=== PATIENT | female | born 1975 | race Caucasian/White ===

== ENCOUNTER 2019-07-17 05:18 | Inpatient (IN) | payer MEDICAID ==
[~2019-07-17] VITALS: Ht 167.6 cm; Wt 98.9 kg
[2019-07-17 05:18] VITALS: BP_SYST 187
--- NOTE | 2019-07-17 05:18 | NUR ---
Dr. Roy assessing pt.
--- NOTE | 2019-07-17 05:18 | NUR ---
Pt BIB ALS r/t ALOC, placed to ER bed 07 and to electronic device monitor. Pt was found staggering around outside of [facility] acting "funny and loopy" as reported by staff of [facility] to ALS. Pt arrives AAOx2, Altered, pinpoint pupils. Pt admits to Marijuanna, Meth, and alcohol use ASSEMBLY DEPARTMENT SUPERVISOR. Pt laughing and trying to get out of bed. Pt instructed to get back into bed and complies.
[2019-07-17] MEDS ORDERED: LORazepam 2 MG/ML VIAL IM ONE (05:30)
[2019-07-17] MEDS ORDERED: HALOPERIDOL LACTATE 5 MG/ML VIAL IM ONE ×4 (05:30→06:00)
[2019-07-17] MEDS ORDERED: DIPHENHYDRAMINE INJ 50 MG/ML VIAL IM ONE (05:30)
--- NOTE | 2019-07-17 05:30 | NUR ---
Pt attempting to get out of bed, wripping off monitoring equipment, combative, yelling out profanities. Dr. Roy made aware. Pt to be medicated.
--- NOTE | 2019-07-17 05:45 | NUR ---
Pt was laughing, then becomes increasingly hostile, attempting to hit staff, and continues to yell out profanities. Pt difficult to restrain with assistance of 3 RNs, EMT, and security. 4 point restraints applied per verbal order Dr. Roy. Pt continues to thrash about in bed, ripping restraint to RLE. Staff x 4 at bedside continuing to hold down pt.
--- NOTE | 2019-07-17 05:55 | NUR ---
Haldol 5 mg given IM x 3rd dose. Pt becomes less volatile.
--- NOTE | 2019-07-17 05:58 | NUR ---
Pt resting quietly, even and non-labored respirations, on financial management consultant, VSS. 4-point restraints remain in place, pt repositioned.
[2019-07-17 06:35] LABS: BASOPHILS # (AUTO) 0.1 K/uL (0.0-0.2); BASOPHILS % (AUTO) 1.3 % (0.0-2.0); EOSINOPHILS # (AUTO) 0.2 K/uL (0.0-0.4); EOSINOPHILS % (AUTO) 3.6 % (0.0-4.0); HEMATOCRIT 38.4 % (36-48); LYMPHOCYTES # (AUTO) 1.9 K/uL (1.0-5.5); LYMPHOCYTES % (AUTO) 27.4 % (20.5-51.5); MEAN CORPUSCULAR HEMOGLOBIN 31 pg (27-31); MEAN CORPUSCULAR HGB CONC 34 % (32-36); MEAN CORPUSCULAR VOLUME 92 fL (79.0-98.0); MONOCYTES # (AUTO) 0.6 K/uL (0.0-1.0); MONOCYTES % (AUTO) 9.3 % (1.7-9.3); NEUTROPHILS % (AUTO) 58.4 % (40.0-70.0); PLATELET COUNT (AUTO) 300 K/uL (130-430); RED BLOOD CELL COUNT(AUTO) 4.18 MIL/uL (4.2-6.2); RED CELL DISTRIBUTION WIDTH 14.4 % (9.0-15.0); WHITE BLOOD COUNT (AUTO) 6.9 K/uL (4.8-10.8)
--- NOTE | 2019-07-17 06:40 | NUR ---
Pt asleep, withdrawls to heavy touch. Moved to position of comfort, all restraints removed. VSS. Breathing even, unlabored with good tidal volume.
--- NOTE | 2019-07-17 06:43 | NUR ---
Pt to CT via stretcher in stable condition.
[2019-07-17 06:49] LABS: ANION GAP 11 (5-15); CALCIUM 8.3 mg/dL (8.4-11.0); CHLORIDE 105 mmol/L (98-107); CREATININE 0.82 mg/dL (0.55-1.30); GLUCOSE 158 mg/dL (70-99); POTASSIUM 3.2 mmol/L (3.5-5.1); SODIUM SERUM 140 mmol/L (136-145); UREA NITROGEN, BLOOD 16 mg/dL (8-21)
[2019-07-17 06:55] LABS: GFR AFRICAN AMERICAN 98 mL/min (>90)
[2019-07-17 07:00] LABS: ALANINE AMINOTRANSFERASE 37 U/L (12-78); ALBUMIN 3.3 g/dL (3.4-4.8); ASPARTATE AMINOTRANSFERASE 28 U/L (10-37); TOTAL BILIRUBIN 0.2 mg/dL (0.0-1.0)
--- NOTE | 2019-07-17 07:00 | NUR ---
Pt returns from CT. Resting quietly, even and non-labored respirations, VSS per bedside electronic device monitor.
[2019-07-17 07:06] LABS: ACETAMINOPHEN < 1 ug/mL (1-30); ALCOHOL, BLOOD < 3 mg/dL (<10); HCG,QUANTITATIVE 1 mIU/ML (0-6)
[2019-07-17 07:12] LABS: BILIRUBIN,URINE NEGATIVE (NEGATIVE); CLARITY/URINE CLEAR (CLEAR); COLOR,URINE YELLOW (YELLOW); GLUCOSE,URINE NEGATIVE (NEGATIVE); KETONES,URINE NEGATIVE (NEGATIVE); LEUKOCYTE ESTERASE ,URINE NEGATIVE (NEGATIVE); NITRITE, URINE NEGATIVE (NEGATIVE); PROTEIN URINE 1+ (NEGATIVE)
[2019-07-17 07:14] LABS: BLOOD, URINE TRACE (NEGATIVE)
--- NOTE | 2019-07-17 07:46 | NUR ---
pt arrives from [facility] w/ ALOC. Pt then became combative towards staff and is currently on restraints. Pt is sleeping quietly in bed. Report received from Ashu WILLINGHAM
[2019-07-17 07:55] LABS: BARBITURATE, URINE NEGATIVE (NEG <=200); BENZODIAZEPINE, URINE NEGATIVE (NEG <=150); CANNABINOID, URINE POSITIVE (NEG <=50); COCAINE, URINE NEGATIVE (NEG <=150); METHAMPHETAMINES SCREEN,URINE NEGATIVE (NEG <=500); OPIATE, URINE NEGATIVE (NEG <=100); PHENCYCLIDINE SCREEN,URINE POSITIVE (NEG <=25); UR TRICYCLIC ANTIDEPRESSANTS NEGATIVE (NEG <=300); URINE AMPHETAMINE POSITIVE (NEG <=500); URINE METHADONE NEGATIVE (NEG <=200); URINE OXYCODONE SCREEN NEGATIVE (NEG <=100); URINE PROPOXYPHENE SCREEN NEGATIVE (NEG <=300)
[2019-07-17 08:01] LABS: BACTERIA,URINE RARE /HPF (None Seen); RBC,URINE 0-3 /HPF (0-3); WBC,URINE 0-3 /HPF (0-3)
[2019-07-17 08:02] LABS: MUCUS,URINE 1+ /LPF (None Seen)
[2019-07-17 08:04] LABS: PROTHROMBIN TIME 10.3 SECS (9.5-12.5)
--- NOTE | 2019-07-17 08:34 | NUR ---
Patient resting quietly. No acute distress noted. Breathing even, unlabored.
--- NOTE | 2019-07-17 10:06 | NUR ---
JUDI, SKI PATROL OFFICER, CALLED BACK TO GIVE VERBAL AUTH TO ADMIT INHOUSE. REQUESTED FAX OF [facility]. FAX: [phone]
--- NOTE | 2019-07-17 13:20 | NUR ---
Pt resting at this time, VSS, respirations even and unlabored
--- NOTE | 2019-07-17 16:00 | NUR ---
Aylin maravilla'nickolas. Patient is currently sleeping in bed.
--- NOTE | 2019-07-17 17:00 | NUR ---
Pt resting at this time, no s/s of distress, VSS
--- NOTE | 2019-07-17 18:30 | NUR ---
Pt resting at this time, no s/s of distress, VSS,
--- NOTE | 2019-07-17 19:10 | NUR ---
Report given to Van WILLINGHAM
--- NOTE | 2019-07-17 20:20 | NUR ---
Transfer to Telemetry via ACLS protocol. Licensed nurse present. IV present no signs or symptoms of infiltration.
--- NOTE | 2019-07-17 20:20 | NUR ---
Patient will be admitted to care of Dr. Iqbal. Admitted to Telemetry unit. Will go to room 112 A. Belongings list completed. Complete and up to date summary report printed. SBAR report to be given at bedside with opportunity for questions.
--- NOTE | 2019-07-17 20:30 | NUR ---
ADMISSION: The patient, YENIFER JERONIMO, 43 y/o, F admitted by ANURADHA HANSEN MD, WITH THE DIAGNOSIS OF ALTERED LEVEL OF CONSCIOUSNESS, PT WAS ON RESTRAINT , PER ER NURSE , PT WAS ON RESTRAINT JUST FOR TRANSFER , SO RESTRAINTS DCD . PT IS SLEEPING AT THIS TIME . VITALS ARE STABLE, PRIMARY RN AWARE .
--- NOTE | 2019-07-17 21:10 | NUR ---
SBAR report Received beside sbar report from charge, Екатерина WILLINGHAM. Patient resting in bed w/ eyes closed. Bed locked in lowest position, side rails up 3x, bed alarm on, call light w/in reach.
--- NOTE | 2019-07-17 21:18 | NUR ---
Dr. Iqbal s/w Dr. Iqbal, received orders for IVF LR at 100 ml/hr, bilat wrist restraint, K-rider 40 meq for potassium level 3.2, Psych consult w/ Dr. Garcia. Read back and entered in [facility].
[2019-07-17] MEDS ORDERED: POTASSIUM CHLORIDE 40 MEQ in NS 250 ML IV SCH (22:00)
[2019-07-17 22:14] VITALS: BP_SYST 114
[2019-07-17] MEDS: LR 1,000 ML IV SCH (22:33)
[2019-07-17] MEDS ORDERED: LORazepam 2 MG/ML VIAL IVP PRN (22:45)
--- NOTE | 2019-07-17 23:25 | NUR ---
Consultation Paged Reason for Consultation: Acting Out/ Agitated Was consult called? Y Person who was notified: Jacqueline Consulting Physician: Dr. Garcia Supervisor [employer] Ordering Physician: Dr. Iqbal Face Sheet was fax to [phone]
[2019-07-17] MEDS ORDERED: KCL 20 mEq in 100 mL (PREMIX) 100 ML IV ONE (23:34)
--- NOTE | 2019-07-18 00:15 | NUR ---
Awake / yelling Patient is awake and started yelling. She was cussing and demanding I get her out of here. I reoriented her to surroundings and informed she is in hospital and she did not follow. She became upset and continued to cuss, she started sitting up, pull off gown, and triggered the alarm. I administered ativan for agitation as ordered.
[2019-07-18 01:46] VITALS: BP_SYST 157
[2019-07-18] MEDS ORDERED: KCL 20 mEq in 100 mL (PREMIX) 100 ML IV ONE (02:34)
[2019-07-18 07:19] LABS: BASOPHILS # (AUTO) 0.1 K/uL (0.0-0.2); EOSINOPHILS # (AUTO) 0.3 K/uL (0.0-0.4); EOSINOPHILS % (AUTO) 3.7 % (0.0-4.0); HEMATOCRIT 37.8 % (36-48); HEMOGLOBIN 12.8 g/dL (12.0-16.0); LYMPHOCYTES # (AUTO) 2.2 K/uL (1.0-5.5); LYMPHOCYTES % (AUTO) 32.5 % (20.5-51.5); MEAN CORPUSCULAR HEMOGLOBIN 31 pg (27-31); MEAN CORPUSCULAR HGB CONC 34 % (32-36); MEAN CORPUSCULAR VOLUME 93 fL (79.0-98.0); MONOCYTES # (AUTO) 0.5 K/uL (0.0-1.0); NEUTROPHILS # (AUTO) 3.8 K/uL (1.8-7.7); NEUTROPHILS % (AUTO) 55.8 % (40.0-70.0); PLATELET COUNT (AUTO) 277 K/uL (130-430); RED BLOOD CELL COUNT(AUTO) 4.08 MIL/uL (4.2-6.2); RED CELL DISTRIBUTION WIDTH 14.5 % (9.0-15.0); WHITE BLOOD COUNT (AUTO) 6.8 K/uL (4.8-10.8)
--- NOTE | 2019-07-18 07:19 | NUR ---
Nutrition Update Saleem Scale 17 noted. Pt admitted for ALOC Diet: Regular BMI: 25.9 kg/m2 RD to follow per nutrition care standards.
--- NOTE | 2019-07-18 07:25 | NUR ---
closing note endorsed care, sbar report, patient stable
[2019-07-18 07:43] LABS: POTASSIUM 3.9 mmol/L (3.5-5.1)
[2019-07-18 07:44] LABS: ALBUMIN 2.8 g/dL (3.4-4.8); CALCIUM 8.4 mg/dL (8.4-11.0); CREATININE 0.55 mg/dL (0.55-1.30)
[2019-07-18 08:00] VITALS: BP_SYST 143
--- NOTE | 2019-07-18 08:00 | NUR ---
Note Pt drowsy and sleepy at this time with bilateral wrist restraints on at this time. Tele unit attached and intact. IV in right hand intact and patent infusing IVF's well. Pt next to nurses' station for close observation for needs and care. Pt has O2 on at 2L/nc. Pt confused and agitated when awake. Call light within reach.
[2019-07-18 08:13] LABS: TOTAL BILIRUBIN 0.4 mg/dL (0.0-1.0)
[2019-07-18] MEDS ORDERED: LORazepam 2 MG/ML VIAL IM ONE (08:45)
--- NOTE | 2019-07-18 08:45 | NUR ---
Note Pt got out of bed, pulled off her wrist restraints, tele unit, ID name band and IV. Bed alarm was on all shift. Pt sat in BS chair, was reluctant to go back to bed. 4 person assist pt back to bed. Pt's wrist restraints were reapplied, Ativan 2mg, tele unit was reattached and new IV was restarted on right hand. Dr Iqbal was called to notify MD. Pt fell back to sleep at this time. Call light within reach.
[2019-07-18] MEDS: LR 1,000 ML IV SCH ×2 (09:39→17:04)
--- NOTE | 2019-07-18 11:35 | NUR ---
Note Pt asleep in bed with restraints on bilateral wrist. Bed alarm on all shift. Pt next to nurses' station for close observation at this time. Tele unit attached and intact at this time.
[2019-07-18 13:03] VITALS: BP_SYST 155
[2019-07-18] MEDS ORDERED: LORazepam 2 MG/ML VIAL IVP PRN (15:15)
[2019-07-18 16:11] VITALS: BP_SYST 125
--- NOTE | 2019-07-18 18:00 | NUR ---
Note Pt was checked on Q1' and PRN all shift for needs and care. Tele unit attached and intact all shift. IV in right hand intact and patent infusing IVF's well. Dr Shane came to pt's bedside and assessment was completed at this time. No needs noted. Dr Iqbal did rounds as well. Pt resting in bed. Call light within reach.
--- NOTE | 2019-07-18 18:50 | NUR ---
Note Dr Iqbal doing rounds at bedside, pt pulled out her IV and right restraint. Dr Iqbal will write orders for sedation and to help pt with agitation and restlessness. Pt refused her dinner tray which is at bedside.
[2019-07-18] MEDS ORDERED: DIPHENHYDRAMINE INJ 50 MG/ML VIAL IM PRN (19:00)
[2019-07-18] MEDS ORDERED: HALOPERIDOL LACTATE 5 MG/ML VIAL IM PRN (19:00)
--- NOTE | 2019-07-18 19:20 | NUR ---
initial notes: pt is very lethargic, wakes up and talk when ask by family member. pt is oriented x 3. no sign of pain. no distress. no iv site at this time. pt has bilateral wrist restrain for pulling out lines. family at bedside. vital sign are stable. explain to family member plan of care and why pt is on restrain. they verbalized understanding. needs attended, call light in reach,side rails up and low bed position and lock. will monitor.
[2019-07-18 20:28] VITALS: BP_SYST 162
[2019-07-18] MEDS: OLANZapine 5 MG TAB.RAPDIS PO SCH (20:51)
--- NOTE | 2019-07-18 22:00 | NUR ---
family member clean and feed the pt. tolerate well. stable. needs attended. safety on, family member at bedside. will monitor.
[2019-07-18 23:45] VITALS: BP_SYST 150
--- NOTE | 2019-07-19 | NUR ---
pt is resting, quietly. start new iv to left fore arm gauge 20- good blood return, done aseptically. pt tolerate well. iv site secure well. needs attended. family at bedside will follow-up.
--- NOTE | 2019-07-19 02:00 | NUR ---
ask to go to bathroom, assisted pt, unsteady gait, tolerate well. no sign of agitation. still sleepy, back to bed.safety on. family at bedside. will monitor.
[2019-07-19] MEDS: LR 1,000 ML IV SCH ×3 (03:30→20:57)
--- NOTE | 2019-07-19 04:00 | NUR ---
pt is sleeping, no agitation and no pulling out of lines, family member at bedside. needs attended. safety on. will monitor.
--- NOTE | 2019-07-19 05:52 | NUR ---
sleeping, no pain. no sob. no agitation. ivf infusing well. family member at bedside. will monitor.
--- NOTE | 2019-07-19 07:25 | NUR ---
closing: pt is sleeping, no sob, no pain, no agitation. ivf infusing well. family member at bedside. bedside report given to am rn.
[2019-07-19 08:50] VITALS: BP_SYST 151
[2019-07-19] MEDS: OLANZapine 5 MG TAB.RAPDIS PO SCH ×2 (08:51→20:57)
[2019-07-19 11:36] VITALS: BP_SYST 148
--- NOTE | 2019-07-19 12:20 | NUR ---
Routine Patient resting comfortably in bed with family members at bedside. Patient stable at this time.
[2019-07-19 14:17] LABS: BASOPHILS # (AUTO) 0.1 K/uL (0.0-0.2); BASOPHILS % (AUTO) 1.3 % (0.0-2.0); EOSINOPHILS # (AUTO) 0.3 K/uL (0.0-0.4); HEMATOCRIT 36.3 % (36-48); HEMOGLOBIN 12.5 g/dL (12.0-16.0); LYMPHOCYTES # (AUTO) 2.1 K/uL (1.0-5.5); LYMPHOCYTES % (AUTO) 34.9 % (20.5-51.5); MEAN CORPUSCULAR HEMOGLOBIN 31 pg (27-31); MEAN CORPUSCULAR HGB CONC 34 % (32-36); MEAN CORPUSCULAR VOLUME 91 fL (79.0-98.0); MONOCYTES # (AUTO) 0.5 K/uL (0.0-1.0); MONOCYTES % (AUTO) 8.1 % (1.7-9.3); NEUTROPHILS # (AUTO) 3.1 K/uL (1.8-7.7); NEUTROPHILS % (AUTO) 50.7 % (40.0-70.0); PLATELET COUNT (AUTO) 298 K/uL (130-430); RED BLOOD CELL COUNT(AUTO) 3.97 MIL/uL (4.2-6.2); RED CELL DISTRIBUTION WIDTH 14.3 % (9.0-15.0); WHITE BLOOD COUNT (AUTO) 6.1 K/uL (4.8-10.8)
[2019-07-19 14:38] LABS: CALCIUM 8.1 mg/dL (8.4-11.0); CREATININE 0.7 mg/dL (0.55-1.30); POTASSIUM 3.7 mmol/L (3.5-5.1)
--- NOTE | 2019-07-19 15:27 | NUR ---
Jordan Man Note SHAMPOO ASSISTANT attempted to speak with patient. Patient is very lethargic and unable to converse coherently. Spoke with patient's mother, Fay Henning [phone], at bedside. Patient's father, Itz Henning [phone], was also present. Fay stated that patient has been living in other places but will go home with them for at least some time after hospitalization. Patient struggles with substance abuse and has no PCP. Patient's baby is in the custody of patient's parents. Provided Fay with information and advice on substance abuse resources, [facility], and outpatient mental health resources. Psychiatry has attempted an evaluation and will try again when patient may be more alert. Jordan Man will remain available and will attempt to speak with patient when she is more alert. Addendum: 07/19/19 at 1540 by Catherine Hodge LCSW Patient's daughter is nine years old.
[2019-07-19 15:41] VITALS: BP_SYST 165
--- NOTE | 2019-07-19 15:54 | NUR ---
Dietitian Recommendations * Recommend 2 gm Na diet LP, RD Please refer to Nutrition Assessment for details. Signed: 07/19/19 at 1555 by Cindy LION <Co-Signature Required> Co-Signed: 07/19/19 at [address] Addendum: 07/19/19 at 1556 by Cindy LION Amended: Links added.
--- NOTE | 2019-07-19 19:30 | NUR ---
OPENING NOTES Patient is resting, no signs of acute respiratory distress. IVF running, dressings c/d/i. Seizure pads in place, call light within reach, bed alarm on, bed at lowest position. Will continue to monitor.
[2019-07-19 20:00] VITALS: BP_SYST 136
--- NOTE | 2019-07-19 20:10 | NUR ---
Patient moved to 112A, family at bedside, patient is still resting, easily arousable. Will continue to monitor.
--- NOTE | 2019-07-19 22:14 | NUR ---
Patient is assisted to the restroom, no signs of distress at this time. Patient is ambulatory and continually reoriented. Family at bedside. Will continue to monitor.
--- NOTE | 2019-07-19 22:15 | NUR ---
Patient provided with sandwich, family at bedside. Patient is resting, no distress observed. IVF running, dressings c/d/i. Will continue to monitor.
--- NOTE | 2019-07-20 00:03 | NUR ---
Patient is resting, no signs of acute respiratory distress observed at this time. Seizure pads in place, family with patient. Will continue to monitor.
[2019-07-20 01:35] VITALS: BP_SYST 133
--- NOTE | 2019-07-20 02:02 | NUR ---
Patient is resting, eyes closed, no signs of distress observed. Will continue to monitor.
[2019-07-20 07:19] LABS: BASOPHILS # (AUTO) 0.1 K/uL (0.0-0.2)
[2019-07-20 07:27] LABS: BASOPHILS % (AUTO) 1.3 % (0.0-2.0); EOSINOPHILS # (AUTO) 0.5 K/uL (0.0-0.4); EOSINOPHILS % (AUTO) 5.9 % (0.0-4.0); HEMATOCRIT 37.5 % (36-48); LYMPHOCYTES # (AUTO) 2.2 K/uL (1.0-5.5); LYMPHOCYTES % (AUTO) 28.1 % (20.5-51.5); MEAN CORPUSCULAR HEMOGLOBIN 32 pg (27-31); MEAN CORPUSCULAR HGB CONC 35 % (32-36); MEAN CORPUSCULAR VOLUME 92 fL (79.0-98.0); MONOCYTES # (AUTO) 0.7 K/uL (0.0-1.0); MONOCYTES % (AUTO) 8.7 % (1.7-9.3); NEUTROPHILS # (AUTO) 4.4 K/uL (1.8-7.7); RED BLOOD CELL COUNT(AUTO) 4.09 MIL/uL (4.2-6.2); RED CELL DISTRIBUTION WIDTH 14.5 % (9.0-15.0)
[2019-07-20 07:29] LABS: ALBUMIN 2.6 g/dL (3.4-4.8); CALCIUM 8.1 mg/dL (8.4-11.0); CREATININE 0.55 mg/dL (0.55-1.30); POTASSIUM 3.8 mmol/L (3.5-5.1); TOTAL BILIRUBIN 0.3 mg/dL (0.0-1.0)
--- NOTE | 2019-07-20 07:30 | NUR ---
CLOSING NOTES Patient is resting, HOB elevated, seizure pads in place, IVF running, dressing c/d/i. Family at bedside. Call light within reach, bed alarm on, and bed at lowest position. All needs met throughout shifty, will endorse care to oncoming shift.
--- NOTE | 2019-07-20 07:35 | NUR ---
Opening note Patient is A/ox1. opens eyes to verbal stimuli, but noted to be drowsy. patient unable to answer questions at this time. IV patent, intact, and infusing fluids as ordered. No adverse side effects noted. No infiltration noted. visitor at bedside. On safety and aspiration precautions, HOB kept elevated, 3 side rails up, call light within reach. patient in stable condition. Will continue to monitor.
[2019-07-20 07:45] LABS: WHITE BLOOD COUNT (AUTO) 7.8 K/uL (4.8-10.8)
[2019-07-20 08:00] VITALS: BP_SYST 162
[2019-07-20 08:03] LABS: PLATELET COUNT (AUTO) 284 K/uL (130-430)
--- NOTE | 2019-07-20 08:45 | NUR ---
elevated BP/ Zyprexa patient noted with BP of 162/99, and patient noted to be drowsy. pagenickolas GALO for clarification of orders.
--- NOTE | 2019-07-20 09:30 | NUR ---
Dr. pop called back aware of patients BP, and drowsiness. New order to stop Zyprexa noted and carried out. IV fluids given as ordered. No adverse side effects.
[2019-07-20] MEDS: LR 1,000 ML IV SCH (10:03)
--- NOTE | 2019-07-20 10:30 | NUR ---
SS NOTES: OPTION TRADER was referred by SS for DCPA and SW assessment. OPTION TRADER met with patient at bedside, demographic information confirmed and update (Person to Notify, NOK: Fay Henning, mom, ). Pt is a 43 y/o female who came in via BLS through the ED for ALOC. OPTION TRADER met with, but pt was drowsy, lying in bed, and only able to provide limited information. Pt was unable to state how she was admitted and what happened prior to admission. Pt has a 9 year old son who currently lives with the patient's mother in [place]; pt states child lived with her when she was not homeless. Pt states she has been homeless for a month and does not have a specific place on where she stays. Pt states she used to live with her parents in [place], but pt's mother "kicked" her out. Pt states she is independent with ADL's and does utilize any DME. 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 Pt denies any mental health diagnosis or depression/anxiety. Pt states she smokes PCP daily ($10/day) and smokes meth "whenever I can". Pt denies alcohol use/abuse. Pt states she has history of substance abuse treatment "somewhere in [place]" for a few days and stayed sober for 1 month. Pt did not state any support system. Pt is also agreeable to go back home when discharged. Per prior SW note, parents are agreeable for pt to go back home "at least some time". Pt states she has appropriate clothing for winter. RADHA Alexander provided pt and family with resources. Homeless Waiver on chart.
--- NOTE | 2019-07-20 11:30 | NUR ---
family at bedside/web content & social media manager Sister stated patient does not remember anything the web content & social media manager talked to her about. Sister stated she would like to speak to the web content & social media manager. Called web content & social media manager; spoke with patients family.
[2019-07-20 12:00] VITALS: BP_SYST 133
--- NOTE | 2019-07-20 13:49 | NUR ---
Lunch/ orientation Patient sitting up in bed at this time, awake, and alert. Patient able to respond to questions. patient in stable condition. no nausea, no vomiting noted.
[2019-07-20] MEDS ORDERED: FLU VACC QS2019-20 36MOS UP/PF 60 MCG/0.5 ML SYRINGE I.M. PRN (14:00)
[2019-07-20 16:00] VITALS: BP_SYST 145
--- NOTE | 2019-07-20 16:00 | NUR ---
Linen change Linens changed, hygiene tools provided. Water pitcher refilled. No other needs at this time.
[2019-07-20 17:53] VITALS: BP_SYST 145
[2019-07-20 18:09] VITALS: BP_SYST 145
--- NOTE | 2019-07-20 18:45 | NUR ---
D/C Patient/ refusal of flu vaccine Patient given medication reconciliation form and D/C instructions. patient refused flu shot. Exit Care provided. Patient verbalized understanding. MD discussed with patient the results and treatment provided. Ambulatory with steady gait for discharge to home. Patient in stable condition, ID band removed. IV catheter removed, intact and dressing applied, no active bleeding. Patient educated on pain management. All belongings sent with patient.
== END 2019-07-20 18:45 | disposition home or self-care (01) | DRG 52 ==
LOC: SED 05:18 → STU 19:45
PROVIDERS: ADMIT Internal Medicine; ATTEND Internal Medicine
DX: G92 Toxic encephalopathy (principal); E44.1 Mild protein-calorie malnutrition; E66.9 Obesity, unspecified; F23 Brief psychotic disorder; F15.10 Other stimulant abuse, uncomplicated; F12.10 Cannabis abuse, uncomplicated; F16.10 Hallucinogen abuse, uncomplicated; Z68.35 Body mass index [BMI] 35.0-35.9, adult; R40.2133 Coma scale, eyes open, to sound, at hospital admission; R40.2423 Glasgow coma scale score 9-12, at hospital admission; R40.2353 Coma scale, best motor response, localizes pain, at hospital admission
CPT/HCPCS: 36415; 70450-TC; 71045; 72125-TC; 80048; 80053; 80307; 81000-TC; 82550-TC; 83735-TC; 84484; 84702-TC; 85025; 85610-TC; 85730-TC; 93005; 96372; 99285; G0378; G0480; G0481; G0482; J2060; J3480; J7050; J7120

== ENCOUNTER 2022-01-05 04:05 | Emergency (ER) | payer MEDICAID ==
[~2022-01-05] VITALS: Ht 157.5 cm; Wt 99.8 kg
[2022-01-05 04:10] VITALS: BP_SYST 147
[2022-01-05 07:01] LABS: EOSINOPHILS # (AUTO) 0.1 K/uL (0.0-0.4); EOSINOPHILS % (AUTO) 1.7 % (0.0-4.0); HEMATOCRIT 42.1 % (36-48); HEMOGLOBIN 14.3 g/dL (12.0-16.0); LYMPHOCYTES # (AUTO) 1.5 K/uL (1.0-5.5); LYMPHOCYTES % (AUTO) 41.8 % (20.5-51.5); MEAN CORPUSCULAR HEMOGLOBIN 29 pg (27-31); MEAN CORPUSCULAR HGB CONC 34 % (32-36); MEAN CORPUSCULAR VOLUME 86 fL (79.0-98.0); MONOCYTES # (AUTO) 0.4 K/uL (0.0-1.0); MONOCYTES % (AUTO) 12.3 % (1.7-9.3); NEUTROPHILS # (AUTO) 1.5 K/uL (1.8-7.7); NEUTROPHILS % (AUTO) 43.2 % (40.0-70.0); PLATELET COUNT (AUTO) 202 K/uL (130-430); RED BLOOD CELL COUNT(AUTO) 4.91 MIL/uL (4.2-6.2); RED CELL DISTRIBUTION WIDTH 14.9 % (9.0-15.0); WHITE BLOOD COUNT (AUTO) 3.5 K/uL (4.8-10.8)
[2022-01-05 07:05] LABS: CALCIUM 7.9 mg/dL (8.4-11.0); CREATININE 0.78 mg/dL (0.55-1.30); POTASSIUM 3.5 mmol/L (3.5-5.1)
[2022-01-05 07:21] LABS: ALBUMIN 2.9 g/dL (3.4-4.8); C-REACTIVE PROTEIN QUANT 0.4 mg/dL (0-0.5); TOTAL BILIRUBIN 0.1 mg/dL (0.0-1.0)
[2022-01-05] MEDS ORDERED: NIRM1TAB PO (07:25)
[2022-01-05] MEDS ORDERED: IBUP-1969 PO (07:25)
[2022-01-05 08:00] VITALS: BP_SYST 140
[2022-01-05 09:08] LABS: ERYTHROCYTE SEDIMENTATION RATE 10 MM/HR (0-20)
== END 2022-01-05 08:15 | disposition home or self-care (01) ==
LOC: SED 04:05
DX: U07.1 COVID-19 (principal); J40 Bronchitis, not specified as acute or chronic
CPT/HCPCS: 36415; 71045; 80053; 81025; 82550; 85025; 85651-TC; 86140; 99284

== ENCOUNTER 2022-01-17 07:37 | Emergency (ER) | payer MEDICAID ==
[~2022-01-17] VITALS: Ht 157.5 cm; Wt 102.1 kg
[~2022-01-17 07:37] MED LIST: IBUP-1969 PO; NIRM1TAB PO
[2022-01-17 08:15] VITALS: BP_SYST 218
[2022-01-17] MEDS ORDERED: IBUPROFEN 800 MG TABLET PO ONE (08:15)
[2022-01-17] MEDS ORDERED: cloNIDine HCL 0.1 MG TABLET PO ONE (08:15)
--- NOTE | 2022-01-17 08:15 | NUR ---
Pt triaged in tent and placed there for evaluation due to COVID sx and recently being COVID positive.
[2022-01-17 08:44] LABS: BASOPHILS % (AUTO) 0.2 % (0.0-2.0); EOSINOPHILS # (AUTO) 0.3 K/uL (0.0-0.4); HEMATOCRIT 39.4 % (36-48); HEMOGLOBIN 13.5 g/dL (12.0-16.0); LYMPHOCYTES # (AUTO) 2.3 K/uL (1.0-5.5); LYMPHOCYTES % (AUTO) 28.4 % (20.5-51.5); MEAN CORPUSCULAR HEMOGLOBIN 30 pg (27-31); MEAN CORPUSCULAR HGB CONC 34 % (32-36); MEAN CORPUSCULAR VOLUME 86 fL (79.0-98.0); MONOCYTES # (AUTO) 0.7 K/uL (0.0-1.0); MONOCYTES % (AUTO) 9.1 % (1.7-9.3); NEUTROPHILS # (AUTO) 4.7 K/uL (1.8-7.7); NEUTROPHILS % (AUTO) 58.3 % (40.0-70.0); PLATELET COUNT (AUTO) 327 K/uL (130-430); RED BLOOD CELL COUNT(AUTO) 4.58 MIL/uL (4.2-6.2); RED CELL DISTRIBUTION WIDTH 14.8 % (9.0-15.0)
[2022-01-17 08:57] LABS: ANION GAP 6 (5-15); CALCIUM 8.4 mg/dL (8.4-11.0); CHLORIDE 103 mmol/L (98-107); CREATININE 0.83 mg/dL (0.55-1.30); GLUCOSE 217 mg/dL (70-99); POTASSIUM 3.9 mmol/L (3.5-5.1); SODIUM SERUM 135 mmol/L (136-145); UREA NITROGEN, BLOOD 14 mg/dL (8-21)
--- NOTE | 2022-01-17 08:58 | NUR ---
Patient brought into bed 5 and placed in rm due to Clonidine order placed. Report given to Anthony WILLINGHAM to assume care of patient.
[2022-01-17 09:03] LABS: ALANINE AMINOTRANSFERASE 34 U/L (12-78); ALBUMIN 3.2 g/dL (3.4-4.8); ASPARTATE AMINOTRANSFERASE 27 U/L (10-37); TOTAL BILIRUBIN 0.2 mg/dL (0.0-1.0)
[2022-01-17 09:08] LABS: GFR AFRICAN AMERICAN 95 mL/min (>90)
[2022-01-17 09:09] LABS: C-REACTIVE PROTEIN QUANT < 0.2 mg/dL (0-0.5)
--- NOTE | 2022-01-17 09:36 | NUR ---
Pt AAOx4, GCS 15. Pt c/o OREILLY x5days. Pt in room 5 lights off for comfort. Pt seen by ED MD at bedside. Will continue to monitor.
[2022-01-17] MEDS ORDERED: HYDR-3917 PO (10:17)
[2022-01-17] MEDS ORDERED: IBUP-1969 PO (10:17)
[2022-01-17 10:29] VITALS: BP_SYST 153
--- NOTE | 2022-01-17 10:31 | NUR ---
Patient given written and verbal discharge instructions and verbalizes understanding. ER MD discussed with patient the results and treatment provided. Patient in stable condition. ID arm band removed. Rx of Motrin and [place] given. Patient educated on pain management and to follow up with PMD. Pain Scale 0/10. Opportunity for questions provided and answered. Medication side effect fact sheet provided. Pt d/c in no acute distress. AOx4, GCS 15.
== END 2022-01-17 10:31 | disposition home or self-care (01) ==
LOC: SED 07:37
DX: R51.9 Headache, unspecified (principal)
CPT/HCPCS: 36415; 70450-TC; 76376; 80053; 81025; 85025; 86140; 99284